=== PATIENT | female | born 1985 | race Caucasian/White ===

== ENCOUNTER 2017-07-02 00:14 | Emergency (ER) | payer OTHER ==
[~2017-07-02] VITALS: Ht 177.8 cm; Wt 63.5 kg
[2017-07-02 00:18] VITALS: BP 117/71
--- NOTE | 2017-07-02 00:38 | NUR ---
31 Y/O FEMALE PLACED IN BED 1 C/O SMALL FINGER LACERATION.
[2017-07-02] MEDS ORDERED: GELATIN SPONGE,ABSORBABLE 1 SPONGE SPONGE TP ONE (01:08)
--- NOTE | 2017-07-02 01:09 | NUR ---
PAC ELGIN AT BEDSIDE FOR AVULSION CARE.
== END 2017-07-02 01:30 | disposition home or self-care (01) ==
LOC: ER 00:24
DX: S61.301A Unspecified open wound of left index finger with damage to nail, initial encounter (principal); Z88.0 Allergy status to penicillin; Z60.2 Problems related to living alone; W26.0XXA Contact with knife, initial encounter; Y93.89 Activity, other specified; Y92.89 Other specified places as the place of occurrence of the external cause; Y99.8 Other external cause status
CPT/HCPCS: A4606; A6402; Z7610